=== PATIENT | female | born 1980 | race Two or more races ===

== ENCOUNTER 2019-11-07 07:38 | Outpatient (CLI) | payer OTHER | END 2019-11-07 07:41 | disposition home or self-care (01) | LOC: TOM 07:38 | PROVIDERS: ATTEND Otolaryngology Otolaryngology/Facial Plastic Surgery | DX: R42 Dizziness and giddiness (principal); R09.81 Nasal congestion; R22.1 Localized swelling, mass and lump, neck ==

== ENCOUNTER 2020-03-03 15:51 | Emergency (ER) | payer OTHER ==
[~2020-03-03] VITALS: Ht 152.4 cm; Wt 52.2 kg
== END 2020-03-03 20:59 | disposition home or self-care (01) ==
LOC: ER 15:51
DX: K29.60 Other gastritis without bleeding (principal)

== ENCOUNTER → 2020-04-03 08:39 | Outpatient (CLI) | payer OTHER | END | disposition home or self-care (01) | LOC: LAB 08:39 | PROVIDERS: ATTEND Obstetrics & Gynecology | DX: I10 Essential (primary) hypertension (principal); E03.8 Other specified hypothyroidism; E78.49 Other hyperlipidemia; N95.8 Other specified menopausal and perimenopausal disorders; E22.1 Hyperprolactinemia ==

== ENCOUNTER 2020-04-03 08:43 | Outpatient (CLI) | payer OTHER | END 2020-04-03 10:32 | disposition home or self-care (01) | LOC: SONOGRAMA 08:43 → MAMO-SONO 09:15 → SONOGRAMA 09:15 | PROVIDERS: ATTEND Obstetrics & Gynecology | DX: E04.1 Nontoxic single thyroid nodule (principal); N60.01 Solitary cyst of right breast; N60.11 Diffuse cystic mastopathy of right breast; N60.12 Diffuse cystic mastopathy of left breast ==

== ENCOUNTER → 2020-07-11 08:00 | Outpatient (CLI) | payer OTHER | END | disposition home or self-care (01) | LOC: LAB 07:44 | PROVIDERS: ATTEND Internal Medicine Cardiovascular Disease | DX: M12.9 Arthropathy, unspecified (principal); M46.47 Discitis, unspecified, lumbosacral region; I10 Essential (primary) hypertension; E11.9 Type 2 diabetes mellitus without complications; E03.8 Other specified hypothyroidism; E78.2 Mixed hyperlipidemia; E55.9 Vitamin D deficiency, unspecified ==

== ENCOUNTER → 2020-07-11 09:40 | Outpatient (CLI) | payer OTHER | END | disposition home or self-care (01) | LOC: NUCLEAR 09:00 | PROVIDERS: ATTEND Internal Medicine Cardiovascular Disease | DX: I10 Essential (primary) hypertension (principal); G45.9 Transient cerebral ischemic attack, unspecified ==